=== PATIENT | female | born 1960 | race Caucasian/White ===

== ENCOUNTER 2021-05-07 08:29 | Emergency (ER) | payer SELFPAY ==
[~2021-05-07] VITALS: Ht 152.4 cm; Wt 79.5 kg
[2021-05-07 08:32] VITALS: TEMP 98.5
[2021-05-07] MEDS ORDERED: RT ADVAIR 128 DISKUS IH (08:35)
[2021-05-07] MEDS ORDERED: PROVENTIL0.09 MG/A1 IH (08:35)
[2021-05-07] MEDS ORDERED: ROBAXIN 75750 MG/TAB PO (08:50)
[2021-05-07 09:27] VITALS: BP 148/89; PULSE 70
== END 2021-05-07 09:30 | disposition home or self-care (01) ==
LOC: COL.ER 08:29
DX: S39.012A Strain of muscle, fascia and tendon of lower back, initial encounter (principal); J45.909 Unspecified asthma, uncomplicated; Z87.891 Personal history of nicotine dependence; Z79.899 Other long term (current) drug therapy; V43.52XA Car driver injured in collision with other type car in traffic accident, initial encounter